=== PATIENT | male | born 1960 | race African-American/Black ===

== ENCOUNTER 2019-03-09 00:11 | Day surgery (SDC) | payer MEDICARE, SELFPAY ==
[2019-02-28 15:09] VITALS: BMI 32.8
[2019-03-09 11:44] VITALS: BP 152/94; PULSE 81; RESP 18; TEMP 37; O2SAT 96
[2019-03-09] MEDS: LACTATED RINGERS 1,000 ML 150 ML IV CONT (11:51)
--- NOTE | 2019-03-09 12:17 | WPDANESEPPF ---
Anes - Initial Pre Proc Eval Procedure: Operation Date: 03/09/19 13:00 Proposed Procedures p Screening Colonoscopy - Juan Bruno MD Date/Time: 03/09/19 12:17 Surgeon: Juan Bruno MD Pre Op Diagnosis: Neoplasm Screening Patient Data Age: 58 Gender: M Height: 5 ft 8 in Weight: 92.6 kg Last Vital Signs Temp 98.6 F 03/09/19 11:44 Pulse 81 03/09/19 11:44 Resp 18 03/09/19 11:44 BP 152/94 H 03/09/19 11:44 Pulse Ox 96 03/09/19 11:44 Allergies Allergy/AdvReac Type Severity Reaction Status Date / Time No Known Allergies Allergy Verified 03/09/19 11:38 Home Medications Medication Instructions Recorded Confirmed Type escitalopram oxalate [Lexapro] 10 mg PO DAILY 02/28/19 03/09/19 History valsartan-hydrochlorothiazide 1 tablet PO DAILY 02/28/19 03/09/19 History Patient hx anesthesia problems: none Family hx anesthesia problems: none [facility] Past Medical History Medical History (Updated 03/09/19 @ 12:16 by Darwin Prado MD) Depression Hypertension Anes - Eval Final PreProcedure Day of Procedure 03/09/19 12:17 Patient weight: overweight Heart: regular rate and rhythm Lungs: clear to auscultation Airway: Mallampati scale class II Neurological: alert and oriented Last oral intake: >/= 8 hours ASA classification: II Emergent: no Anesthetic plan: proceed Anesthesia type and monitoring: general GIVS and standard monitoring Informed Consent: The patient's anesthetic plan and its attendant risks and benefits were discussed with the patient/family/POA. Questions were solicited and answers provided to the satisfaction of the patient/family/POA.
--- NOTE | 2019-03-09 13:02 | PM.HPGS ---
History of Present Illness History of Present Illness Consent: Risks, benefits, and alternatives have been discussed and questions answered. Patient agrees to proceed with procedure. Chief complaint: Neoplasm Screening Narrative: Nelia Corea is a 58 year old male here for screening colonoscopy, never had one Review of Systems Constitutional: Constitutional: Denies headache(s) and Denies weakness Eyes: Eyes: Denies blurry vision ENT: Reports Normal hearing present, Denies headache(s) and Denies neck pain Cardiovascular: Cardiovascular: Denies chest pain and Denies dyspnea Respiratory: Respiratory: Denies dyspnea Gastrointestinal: Gastrointestinal: Reports no additional gastrointestinal complaints Genitourinary: Genitourinary: Denies dysuria Musculoskeletal: Musculoskeletal: Denies neck pain Integumentary/Breasts: Skin/Breast: Denies dry skin Neurologic: Reports Normal hearing present, Denies headache(s) and Denies weakness Psychiatric: Psychiatric: Denies anxiety Endocrine: Endocrine: Denies change in body appearance Hematologic/Lymphatic: Hematologic/Lymphatic: Denies easy bleeding Allergic/Immunologic: Allergic/Immunologic: Denies urticaria PMFSH Past Medical History Medical History (Updated 03/09/19 @ 13:02 by Juan Bruno MD) Colon cancer screening Depression Hypertension Meds Home Medications and Allergies Home Medications Medication Instructions Recorded Confirmed Type escitalopram oxalate [Lexapro] 10 mg PO DAILY 02/28/19 03/09/19 History valsartan-hydrochlorothiazide 1 tablet PO DAILY 02/28/19 03/09/19 History Allergies Allergy/AdvReac Type Severity Reaction Status Date / Time No Known Allergies Allergy Verified 03/09/19 11:38 Vital Signs Vital Signs - 24 hr 03/09/19 11:44 Temperature 98.6 F Pulse Rate 81 Respiratory Rate 18 Blood Pressure 152/94 H Pulse Oximetry 96 Exam Const: General: comfortable and no acute distress HENMT: General nose exam: Normal nares present Eyes: General: appearance normal, both eyes and all related structures Neck: Neck: no JVD Resp: Auscultation: clear to auscultation bilaterally Cardio: Rate: regular rate Rhythm: regular rhythm GI: Inspection: non-distended GI Palp: Yes Soft to palpation Skin: General skin exam: normal color Neuro: General: gait normal Speech: normal speech Extrem: General: normal to inspection Psych: Mental Status: mental status grossly normal Assessment and Plan Assessment and plan (1) Colon cancer screening: Code(s): Z12.11 - Encounter for screening for malignant neoplasm of colon Status: Acute Assessment and Plan: will proceed with colonoscopy (2) Hypertension: Code(s): I10 - Essential (primary) hypertension Status: Acute
[2019-03-09 13:05] VITALS: BP 106/70; PULSE 62; RESP 21; O2SAT 95
[2019-03-09 13:11] VITALS: BP 106/70; PULSE 62; RESP 21; O2SAT 95
[2019-03-09 13:15] VITALS: BP 141/85; PULSE 63; RESP 20; O2SAT 96
== END 2019-03-09 13:34 | disposition home or self-care (01) ==
PROVIDERS: PCP Internal Medicine; Visit Provider Internal Medicine Gastroenterology
PROC: 0DJD8ZZ Inspection of Lower Intestinal Tract, Via Natural or Artificial Opening Endoscopic (ICD-10-PCS; CPT 45378; principal; 2019-03-09 13:00)
DX: Z12.11 Encounter for screening for malignant neoplasm of colon (principal); K64.8 Other hemorrhoids; I10 Essential (primary) hypertension; F32.9 Major depressive disorder, single episode, unspecified
CPT/HCPCS: 45378; J2704; J7120

== ENCOUNTER 2019-10-11 11:54 | Outpatient (CLI) | payer MEDICARE, SELFPAY ==
[2019-10-11 12:42] LABS: Add Urine Microscopic? YES; Appearance Urine Cloudy (Clear); Bilirubin Urine Negative (Negative); Blood Urine Negative (Negative); Color Urine Blue (Yellow); Glucose Urine UA Negative (Negative); Ketones Urine Negative (Negative); Leukocyte Esterase Ur Negative LEU/UL (Negative); Mucus Urine Rare /lpf; Nitrate Urine Negative (Negative); Protein Urine Negative (Negative); RBC Urine 0-2 /hpf (0-2); Specific Grav Ur 1.011 (1.001-1.035); Squamous Epithelial Cell Urine Occasional /hpf (Few); Urobilinogen Urine Negative mg/dL (<2.0)
== END 2019-10-11 11:55 | disposition home or self-care (01) ==
LOC: ANHLAB 11:56
PROVIDERS: PCP Internal Medicine; Visit Provider Internal Medicine
DX: R35.0 Frequency of micturition (principal)
CPT/HCPCS: 81001

== ENCOUNTER 2019-12-11 10:54 | Outpatient (CLI) | payer MEDICARE, SELFPAY ==
--- NOTE | ~2019-12-11 | XR_ITS ---
EXAMINATION: XR shoulder LT min 2V EXAM DATE: 12/11/2019 12:26 INDICATION: M25.519 - Pain in shoulders. TECHNIQUE: The following left shoulder projections obtained: frontal projection with internal rotatio n, frontal projection with external rotation, Grashey, and axillary (4+ views). Correlation is made t o contralateral shoulder same date. FINDINGS: There is a clip likely anchor from prior left rotator cuff repair. There is mild glenoh umeral and acromioclavicular joint primary osteoarthritis. Mild bony productive changes at the great er tuberosity, less than the contralateral side. There are no acute fractures or dislocations identif ied. There is no subcutaneous gas. The soft tissue is unremarkable. IMPRESSION: Mild degenerative changes. Reviewed, dictated and finalized at location B. ER DRIVER IMPRESSION: Mild degenerative changes.
--- NOTE | ~2019-12-11 | XR_ITS ---
EXAMINATION: XR shoulder RT min 2V EXAM DATE: 12/11/2019 12:26 INDICATION: M25.519 - Pain in shoulders. Rotator cuff repair. No known recent injury. TECHNIQUE: The following right shoulder projections obtained: frontal projection with internal rotati on, frontal projection with external rotation, Grashey, and axillary (4+ views). There is no prior s tudy for comparison. FINDINGS: There is some bulky calcification along the greater tuberosity, could be calcific tendinosi s, or osteophytosis along the humeral head. There is mild acromioclavicular joint primary osteoarthri tis. There are no acute fractures or dislocations identified. There is no subcutaneous gas. The sof t tissue is unremarkable. There are no radiopaque foreign bodies. IMPRESSION: 1. Mild right acromioclavicular osteoarthritis. 2. Bulky productive changes at greater tuberosity and possibly calcific tendinosis. Reviewed, dictated and finalized at location B. E SPECIALIST IMPRESSION: 1. Mild right acromioclavicular osteoarthritis. 2. Bulky productive changes at greater tuberosity and possibly calcific tendino sis.
[2019-12-11 12:15] LABS: Basophils Percent Auto 0.8 % (0.2-1.2); Eosinophils Absolute Auto 0.2 K/mm3 (0-0.3); Eosinophils Percent Auto 3.6 % (0-4.4); Hematocrit 41.8 % (42.0-52.0); Hemoglobin 14.8 g/dL (14.0-18.0); Immature Granulocyte Absolute 0.02 K/mm3 (0.00-0.031); Immature Granulocyte Percent A 0.4 % (0-0.5); Lymphocytes Absolute Auto 1.37 K/mm3 (0.9-3.2); Lymphocytes Percent Auto 25.9 % (18.3-44.2); Mean Corpuscular HGB Conc 35.4 g/dl (32-36); Mean Corpuscular Hemoglobin 31.8 pg (26-34); Mean Corpuscular Volume 89.7 fl (80-100); Mean Platelet Volume 10.1 fl (7.4-10.4); Monocytes Absolute Auto 0.6 K/mm3 (0.1-0.6); Monocytes Percent Auto 10.8 % (2.6-8.5); Neutrophils Absolute Auto 3.1 K/mm3 (1.3-6.7); Neutrophils Percent Auto 58.5 % (45.5-73.1); Platelet Count Result 239 k/mm3 (150-375); Red Blood Count 4.66 M/mm3 (4.6-6.20); Red Cell Distribution Width 12.6 % (11.5-14.5); White Blood Count 5.3 K/mm3 (4.5-10.0)
[2019-12-11 12:43] LABS: Alanine Aminotransferase 25 U/L (4-50); Albumin Level 4.7 g/dL (3.5-5.1); Alkaline Phosphatase 47 U/L (38-126); Anion Gap 10 mmol/L (8-16); Aspartate Amino Transferase 36 U/L (17-59); Bilirubin,Total 0.7 mg/dL (0.2-1.3); Blood Urea Nitrogen 19 mg/dL (9-20); Calcium 9.4 mg/dL (8.4-10.2); Carbon Dioxide 29 mmol/L (22-30); Chloride 99 mmol/L (98-107); Cholesterol 152 mg/dL (0-200); Estimated Glomerular Filt Rate > 60; Glucose 100 mg/dL (75-110); HDL Direct 74 mg/dL; Potassium 3.8 mmol/L (3.4-5.0); Sodium 138 mmol/L (137-145); Triglycerides 184 mg/dL (<150)
[2019-12-11 12:47] LABS: Creatinine Urine 133.4 mg/dL
[2019-12-11 12:53] LABS: MALB Creatinine Ratio 12.7 mg/g (0-30)
[2019-12-11 12:54] LABS: LDL Cholesterol Direct 50 mg/dL
[2019-12-11 13:05] LABS: Vitamin D 25 Hydroxy 36.7 ng/mL
[2019-12-11 13:09] LABS: Hemoglobin A1C 5.1 % (<5.7)
[2019-12-11 13:14] LABS: Prostate Specific Antigen 1.1 ng/mL (< OR = 4.0); Thyroid Stimulating Hormone 0.973 uIU/mL (0.465-4.680)
== END 2019-12-11 10:55 | disposition home or self-care (01) ==
PROVIDERS: PCP Internal Medicine; Visit Provider Internal Medicine
DX: M19.011 Primary osteoarthritis, right shoulder (principal); M19.012 Primary osteoarthritis, left shoulder; F32.9 Major depressive disorder, single episode, unspecified; I10 Essential (primary) hypertension; R73.01 Impaired fasting glucose; E55.9 Vitamin D deficiency, unspecified; Z12.5 Encounter for screening for malignant neoplasm of prostate; E78.2 Mixed hyperlipidemia
CPT/HCPCS: 36415; 73030; 80053; 80061; 82043; 82306; 83036; 84153; 84443; 85025; G0103

== ENCOUNTER 2020-09-09 08:01 | Outpatient (CLI) | payer MEDICARE, SELFPAY ==
[2020-09-09 08:27] LABS: Basophils Absolute Auto 0.1 K/mm3 (0.0-0.1); Basophils Percent Auto 1.4 % (0.2-1.2); Eosinophils Absolute Auto 0.2 K/mm3 (0-0.3); Hematocrit 40.7 % (42.0-52.0); Hemoglobin 14.2 g/dL (14.0-18.0); Immature Granulocyte Absolute 0.01 K/mm3 (0.00-0.031); Immature Granulocyte Percent A 0.2 % (0-0.5); Lymphocytes Percent Auto 35.9 % (18.3-44.2); Mean Corpuscular HGB Conc 34.9 g/dl (32-36); Mean Corpuscular Hemoglobin 29.8 pg (26-34); Mean Corpuscular Volume 85.5 fl (80-100); Monocytes Absolute Auto 0.5 K/mm3 (0.1-0.6); Monocytes Percent Auto 9.8 % (2.6-8.5); Neutrophils Absolute Auto 2.5 K/mm3 (1.3-6.7); Neutrophils Percent Auto 49.7 % (45.5-73.1); Platelet Count Result 209 k/mm3 (150-375); Red Blood Count 4.76 M/mm3 (4.6-6.20); Red Cell Distribution Width 12.4 % (11.5-14.5)
[2020-09-09 08:42] LABS: Alanine Aminotransferase 30 U/L (4-50); Albumin Level 4.5 g/dL (3.5-5.1); Alkaline Phosphatase 73 U/L (38-126); Anion Gap 10 mmol/L (8-16); Aspartate Amino Transferase 32 U/L (17-59); Bilirubin,Total 0.6 mg/dL (0.2-1.3); Blood Urea Nitrogen 12 mg/dL (9-20); Calcium 9.8 mg/dL (8.4-10.2); Carbon Dioxide 26 mmol/L (22-30); Chloride 99 mmol/L (98-107); Cholesterol 131 mg/dL (0-200); Estimated Glomerular Filt Rate > 60; Glucose 237 mg/dL (65-110); HDL Direct 52 mg/dL; Potassium 3.9 mmol/L (3.4-5.0); Sodium 135 mmol/L (137-145); Triglycerides 110 mg/dL (<150)
[2020-09-09 08:54] LABS: LDL Cholesterol Direct 52 mg/dL
== END 2020-09-09 08:02 | disposition home or self-care (01) ==
PROVIDERS: PCP Internal Medicine; Visit Provider Internal Medicine
DX: F32.9 Major depressive disorder, single episode, unspecified (principal); I10 Essential (primary) hypertension; E78.2 Mixed hyperlipidemia
CPT/HCPCS: 36415; 80053; 80061; 85025

== ENCOUNTER 2021-04-14 06:55 | Outpatient (CLI) | payer MEDICARE, SELFPAY ==
[2021-04-14 07:29] LABS: Hemoglobin 15.4 g/dL (14.0-18.0); Mean Corpuscular Hemoglobin 31.1 pg (26-34); Mean Corpuscular Volume 88.9 fl (80-100); Mean Platelet Volume 10.5 fl (7.4-10.4); Platelet Count Result 212 k/mm3 (150-375); Red Blood Count 4.95 M/mm3 (4.6-6.20); Red Cell Distribution Width 13.2 % (11.5-14.5); White Blood Count 4.5 K/mm3 (4.5-10.0)
[2021-04-14 07:38] LABS: Alanine Aminotransferase 26 U/L (4-50); Albumin Level 4.5 g/dL (3.5-5.1); Alkaline Phosphatase 82 U/L (38-126); Anion Gap 10 mmol/L (8-16); Aspartate Amino Transferase 29 U/L (17-59); Bilirubin,Total 0.6 mg/dL (0.2-1.3); Blood Urea Nitrogen 13 mg/dL (9-20); Calcium 9.4 mg/dL (8.4-10.2); Carbon Dioxide 26 mmol/L (22-30); Chloride 100 mmol/L (98-107); Estimated Glomerular Filt Rate > 60; Glucose 243 mg/dL (65-110); Potassium 3.8 mmol/L (3.4-5.0); Sodium 136 mmol/L (137-145)
[2021-04-14 07:40] LABS: Hemoglobin A1C 9.8 % (<5.7)
[2021-04-14 07:56] LABS: Creatinine Urine 167.3 mg/dL
[2021-04-14 08:01] LABS: Microalbumin Urine Random 26.8 mg/L (0-16.7)
[2021-04-14 08:09] LABS: Prostate Specific Antigen 0.9 ng/mL (< OR = 4.0)
== END 2021-04-14 06:56 | disposition home or self-care (01) ==
LOC: ANHLAB 06:58
PROVIDERS: PCP Internal Medicine; Visit Provider Internal Medicine
DX: R73.01 Impaired fasting glucose (principal); E78.5 Hyperlipidemia, unspecified; F32.9 Major depressive disorder, single episode, unspecified; I10 Essential (primary) hypertension; Z12.5 Encounter for screening for malignant neoplasm of prostate
CPT/HCPCS: 36415; 80053; 82043; 83036; 84153; 84443; 85027; G0103

== ENCOUNTER 2021-07-16 07:56 | Outpatient (CLI) | payer MEDICARE, SELFPAY ==
[2021-07-16 09:09] LABS: Alanine Aminotransferase 28 U/L (6-50); Albumin Level 4.8 g/dL (3.5-5.1); Alkaline Phosphatase 57 U/L (38-126); Anion Gap 7 mmol/L (8-16); Aspartate Amino Transferase 31 U/L (17-59); Bilirubin,Total 0.7 mg/dL (0.2-1.3); Blood Urea Nitrogen 14 mg/dL (9-20); Calcium 9.1 mg/dL (8.4-10.2); Carbon Dioxide 29 mmol/L (22-30); Chloride 103 mmol/L (98-107); Cholesterol 149 mg/dL (0-200); Estimated Glomerular Filt Rate > 60; Glucose 144 mg/dL (65-110); HDL Direct 64 mg/dL; Potassium 3.6 mmol/L (3.4-5.0); Sodium 139 mmol/L (137-145); Triglycerides 143 mg/dL (<150)
[2021-07-16 09:20] LABS: LDL Cholesterol Direct 55 mg/dL
[2021-07-16 09:33] LABS: Creatinine Urine 72.8 mg/dL
[2021-07-16 10:06] LABS: MALB Creatinine Ratio < 8.2 mg/g (0-30); Microalbumin Urine Random < 6.0 mg/L (0-16.7)
== END 2021-07-16 07:57 | disposition home or self-care (01) ==
LOC: ANHLAB 08:00
PROVIDERS: PCP Internal Medicine; Visit Provider Internal Medicine Endocrinology, Diabetes & Metabolism
DX: E11.65 Type 2 diabetes mellitus with hyperglycemia (principal); E11.69 Type 2 diabetes mellitus with other specified complication; E78.5 Hyperlipidemia, unspecified; E11.59 Type 2 diabetes mellitus with other circulatory complications; I15.2 Hypertension secondary to endocrine disorders
CPT/HCPCS: 36415; 80053; 80061; 82043; 84443

== ENCOUNTER 2022-02-13 09:40 | Outpatient (CLI) | payer MEDICARE, SELFPAY ==
[2022-02-13 10:37] LABS: Hematocrit 45.5 % (42.0-52.0); Hemoglobin 15.9 g/dL (14.0-18.0); Mean Corpuscular HGB Conc 34.9 g/dl (32-36); Mean Corpuscular Hemoglobin 30.8 pg (26-34); Mean Platelet Volume 10.7 fl (7.4-10.4); Platelet Count Result 233 k/mm3 (150-375); Red Blood Count 5.17 M/mm3 (4.6-6.20); Red Cell Distribution Width 13.3 % (11.5-14.5); White Blood Count 5.8 K/mm3 (4.5-10.0)
[2022-02-13 10:47] LABS: Alanine Aminotransferase 32 U/L (6-50); Albumin Level 4.9 g/dL (3.5-5.1); Alkaline Phosphatase 58 U/L (38-126); Anion Gap 13 mmol/L (8-16); Aspartate Amino Transferase 32 U/L (17-59); Bilirubin,Total 1.1 mg/dL (0.2-1.3); Blood Urea Nitrogen 13 mg/dL (9-20); Calcium 9.1 mg/dL (8.4-10.2); Carbon Dioxide 24 mmol/L (22-30); Chloride 99 mmol/L (98-107); Cholesterol 142 mg/dL (0-200); Estimated Glomerular Filt Rate > 60; Glucose 216 mg/dL (65-110); HDL Direct 53 mg/dL; Potassium 3.4 mmol/L (3.4-5.0); Sodium 136 mmol/L (137-145); Triglycerides 155 mg/dL (<150)
[2022-02-13 10:52] LABS: Hemoglobin A1C 6.7 % (<5.7)
[2022-02-13 10:58] LABS: LDL Cholesterol Direct 50 mg/dL
[2022-02-13 11:17] LABS: Prostate Specific Antigen 1.2 ng/mL (< OR = 4.0)
[2022-02-13 11:38] LABS: Hepatitis C Virus Antibody Negative (Negative)
== END 2022-02-13 09:41 | disposition home or self-care (01) ==
PROVIDERS: PCP Family Medicine; Visit Provider Family Medicine
DX: Z12.5 Encounter for screening for malignant neoplasm of prostate (principal); E11.59 Type 2 diabetes mellitus with other circulatory complications; I15.2 Hypertension secondary to endocrine disorders; Z11.59 Encounter for screening for other viral diseases; E11.69 Type 2 diabetes mellitus with other specified complication; E78.5 Hyperlipidemia, unspecified
CPT/HCPCS: 36415; 80053; 80061; 83036; 84153; 84443; 85025; 86803; G0103

== ENCOUNTER 2023-08-04 09:10 | Outpatient (CLI) | payer MEDICARE, SELFPAY ==
--- NOTE | ~2023-08-04 | CT_ITS ---
CT abdomen pelvis wo con Ordering provider: BEN Al History: 63 years Male with . CHRONIC PROSTATITIS . Comparison: August 02, 2018 Technique: CT abdomen and pelvis without IV and without oral contrast. Automated exposure control and iterative reconstruction technique were employed. The dose-length product was 613.86 mGy-cm. Findings: VISUALIZED LOWER CHEST: Right hilar mass most likely lymph node is noted. Minimal atelectatic changes in the right lung base with possibility of nodule. Follow-up advised. Nodule is seen in the lingula measuring 6 mm nodule in the left lower lobe is also noted measuring 7 mm.. UPPER ABDOMINAL ORGANS: Liver: Normal. Gallbladder: Normal. Spleen: Normal. Benign calcifications. Stomach/duodenum: Normal. Pancreas: Normal. Adrenals: Normal. Kidneys: Normal. PELVIC ORGANS: The urinary bladder shows slightly thickened wall with surrounding fat stranding which may indicate cystitis. Clinical evaluation advised. BOWEL AND MESENTERY: Colon: No evidence of diverticulitis. Normal appendix. Small Bowel: Normal. No obstruction. Peritoneum/mesentery: No free air or free fluid. No mesenteric lymphadenopathy. RETROPERITONEUM: Normal aorta. No retroperitoneal lymphadenopathy. MUSCULOSKELETAL: Superficial soft tissues: The superficial soft tissues are normal. Bones: Age appropriate degenerative changes of the spine. IMPRESSION: 1. No acute abdominal process with no evidence of appendicitis, diverticulitis or intestinal obstruc tion. 2. Thickened wall of the urinary bladder with minimal surrounding fat stranding suggestive CYSTITIS. Clinical correlation advised. 3. Bilateral lung nodules with enlarged right hilum. Further evaluation advised. Follow-up CT in 3-6 months is advised. Reviewed, dictated and finalized at location A. IMPRESSION: 1. No acute abdominal process with no evidence of appendicitis, diverticulitis or intestinal obstruction. 2. Thickened wall of the urinary bladder with minimal surrounding fat strandin g suggestive CYSTITIS. Clinical correlation advised. 3. Bilateral lung nodules with enlarged right hilum. Further evaluation advise d. Follow-up CT in 3-6 months is advised.
== END 2023-08-04 09:11 | disposition home or self-care (01) ==
PROVIDERS: PCP Family Medicine; Visit Provider Nurse Practitioner
DX: N41.1 Chronic prostatitis (principal)
CPT/HCPCS: 74176

== ENCOUNTER 2023-09-17 06:43 | Outpatient (CLI) | payer MEDICARE, SELFPAY ==
--- NOTE | ~2023-09-17 | MR_ITS ---
MRI of the lumbar spine Clinical History: Pain Technique: Axial T2-weighted images, and sagittal T1-weighted, T2-weighted, and T2 fat-sat images wer e acquired. Findings: There is no fracture or subluxation of the lumbar spine. Intraosseous hemangioma present at L2. No suspicious bone marrow signal abnormality seen. At L1-L2, there is no disc bulge or herniation. There is minimal facet joint hypertrophy. No central canal stenosis or definite neural foraminal narrowing. At L2-L3, there is minimal disc bulge and mild facet arthropathy. No central canal stenosis or defini te neural foraminal narrowing. L3-L4, there is mild disc bulge and mild facet arthropathy. No central canal stenosis. There is moder ate bilateral neural foraminal narrowing. At L4-L5, there is disc bulge with small annular fissure and mild to moderate facet arthropathy. Ther e is moderate central canal stenosis/thecal sac compression. There is severe bilateral neural foramin al compromise. At L5-S1, there is mild disc bulge and moderate facet arthropathy. No central canal stenosis. There i s severe bilateral neural foraminal narrowing. Paravertebral soft tissues are unremarkable. Impression: Advanced degenerative spondylosis at L4-L5, and L5-S1, as detailed above. Mild degenerative change at the remainder of the lumbar spine. Reviewed, dictated and finalized at [facility]. Impression: Advanced degenerative spondylosis at L4-L5, and L5-S1, as detailed above. Mild degenerative change at the remainder of the lumbar spine.
== END 2023-09-17 06:44 | disposition home or self-care (01) ==
PROVIDERS: PCP Family Medicine; Visit Provider Urology
DX: M47.896 Other spondylosis, lumbar region (principal)
CPT/HCPCS: 72148

== ENCOUNTER 2024-01-18 11:42 | Outpatient (CLI) | payer MEDICARE, SELFPAY ==
--- NOTE | ~2024-01-18 | XR_ITS ---
Left Knee Technique: AP, lateral, and sunrise views were obtained. Clinical History: Arthritis Findings: No fracture or dislocation is seen. Osseous alignment is anatomic. Joint spaces are preserv ed without degenerative or erosive change. Soft tissues are unremarkable. No joint effusion is seen. Impression: Unremarkable left knee radiographs. Reviewed, dictated and finalized at location . L LEAF LAYER Impression: Unremarkable left knee radiographs.
== END 2024-01-18 11:43 | disposition home or self-care (01) ==
PROVIDERS: PCP Family Medicine; Visit Provider Nurse Practitioner Family
DX: M17.12 Unilateral primary osteoarthritis, left knee (principal)
CPT/HCPCS: 73564